=== PATIENT | female | born 1990 | race Caucasian/White ===

== ENCOUNTER 2018-10-01 06:54 | Emergency (ER) | payer OTHER, SELFPAY ==
[~2018-10-01] VITALS: Ht 162.6 cm; Wt 85.9 kg
[2018-10-01 06:54] VITALS: BP 137/88
[2018-10-01] MEDS ORDERED: KEFL500C17 PO (07:17)
[2018-10-01] MEDS ORDERED: NORCOTAB PO (07:36)
== END 2018-10-01 07:50 | disposition home or self-care (01) ==
LOC: M ED 06:54
DX: N76.5 Ulceration of vagina (principal); F17.200 Nicotine dependence, unspecified, uncomplicated